=== PATIENT | female | born 1995 | race Caucasian/White ===

== ENCOUNTER 2016-10-22 10:55 | Emergency (ER) | payer MEDICAID ==
[~2016-10-22] VITALS: Ht 160 cm; Wt 55.5 kg
[~2016-10-22 10:55] MED LIST: CEPH500C3 PO; CLIN150 PO; SULF1TAB47 PO; VIST25CA PO; Z.0.BCPILL PO
[2016-10-22 11:05] VITALS: BP 135/70; PULSE 96; RESP 16; TEMP 98.1; O2SAT 100
[2016-10-22] MEDS ORDERED: PREN29TA PO (11:24)
[2016-10-22] MEDS ORDERED: SODIUM CHLOR 0.9% 1000 ML INJ 1,000 ML IV ONE (11:24)
--- NOTE | 2016-10-22 11:47 | PD ---
HPI Chief Complaint: Related Problem Time Seen by Provider: 11:14 Travel History International Travel<30 days: No Contact w/Intl Traveler<30days: No Traveled to known affect area: No History of Present Illness HPI 21 y/o female states her last menstrual cycle was June 30 and has follow-up with [facility] tomorrow as her insurance just started to take effect at the beginning of the month. She states that she had a negative test in July but then a positive test in August. She states that she hasn't had any ultrasound imaging. She states that she thinks her blood type is A+ but she's not sure. She states that she started having vaginal spotting today so she wanted to get checked out. She denies any other symptoms. Quality is pink now changing to brown. She denies specific modifying factors. PFSH Past Medical History Medical History: Denies Significant Hx Diminished Hearing: No Immunizations Current: Yes Tetanus Vaccination: > 5 Years Influenza Vaccination: No ?: LMP: 06/30/16 Past Surgical History Surgical History: No Previous Surgery Social History Alcohol Use: No Tobacco Use: No Substance Use: No Allergies-Medications (Allergen,Severity, Reaction): Coded Allergies: sulfamethoxazole (Unverified Allergy, Mild, itching, 10/22/16) trimethoprim (Unverified Allergy, Mild, itching, 10/22/16) Reported Meds & Prescriptions Reported Meds & Active Scripts Active Reported Plus Iron 29-1 mg ( Vit-Iron Carbonyl) 29 Mg Iron-1 Mg Tab 1 Tab PO DAILY Review of Systems Except as stated in HPI: all other systems reviewed are Neg Physical Exam Narrative GENERAL: Well-nourished, well-developed patient. SKIN: Warm and dry. HEAD: Normocephalic and atraumatic. EYES: No injection or drainage. ENT: No nasal drainage noted. NECK: Supple, trachea midline. CARDIOVASCULAR: Regular rate and rhythm RESPIRATORY: No increased effort. No accessory muscle use. GASTROINTESTINAL: Abdomen soft, non-tender, nondistended. EXTREMITIES: No edema. NEUROLOGICAL: Awake and alert. Motor and sensory grossly within normal limits. Normal speech. Data Data Last Documented VS Vital Signs Date Time Temp Pulse Resp B/P (MAP) Pulse Ox O2 Delivery O2 Flow Rate FiO2 10/22/16 11:05 98.1 96 16 135/70 (91) 100 Orders Orders Beta Hcg (Quant/Titer) (10/22/16 11:24) Complete Blood Count With Diff (10/22/16 11:24) Complete Rh (10/22/16 11:24) Urinalysis - C+S If Indicated (10/22/16 11:24) Iv Access Insert/Monitor (10/22/16 11:24) Sodium Chlor 0.9% 1000 Ml Inj (Ns 1000 M (10/22/16 11:24) Ed Urine Pregnancytest Poc (10/22/16 11:24) Us Pelvis (Ques Preg/Ectopic) (10/22/16 ) Labs Laboratory Tests Test 10/22/16 11:38 10/22/16 12:43 White Blood Count 9.7 TH/MM3 Red Blood Count 4.40 MIL/MM3 Hemoglobin 13.9 GM/DL Hematocrit 40.4 % Mean Corpuscular Volume 91.7 FL Mean Corpuscular Hemoglobin 31.5 PG Mean Corpuscular Hemoglobin Concent 34.3 % Red Cell Distribution Width 12.6 % Platelet Count 210 TH/MM3 Mean Platelet Volume 9.2 FL Neutrophils (%) (Auto) 72.4 % Lymphocytes (%) (Auto) 20.0 % Monocytes (%) (Auto) 6.0 % Eosinophils (%) (Auto) 0.8 % Basophils (%) (Auto) 0.8 % Neutrophils # (Auto) 7.0 TH/MM3 Lymphocytes # (Auto) 1.9 TH/MM3 Monocytes # (Auto) 0.6 TH/MM3 Eosinophils # (Auto) 0.1 TH/MM3 Basophils # (Auto) 0.1 TH/MM3 CBC Comment DIFF FINAL Differential Comment Human Chorionic Gonadotropin, Quant 30603 MIU/ML Urine Collection Type CLEAN CATCH Urine Color YELLOW Urine Turbidity CLOUDY Urine pH 6.0 Urine Specific Spencer 1.016 Urine Protein NEG mg/dL Urine Glucose (UA) NEG mg/dL Urine Ketones NEG mg/dL Urine Occult Blood MOD Urine Nitrite NEG Urine Bilirubin NEG Urine Leukocyte Esterase SMALL Urine RBC 0-3 /hpf Urine Squamous Epithelial Cells 0-5 /hpf Urine Amorphous Sediment LARGE Microscopic Urinalysis Comment CULT NOT INDICATED MDM Medical Decision Making Medical Screen Exam Complete: Yes Emergency Medical Condition: Yes Medical Record Reviewed: Yes (past history confirmed) Interpretation(s) CBC & BMP Diagram 10/22/16 11:38 Last 24 hours Impressions Pelvis Ultrasound 10/22/16 0000 Signed Impressions: Service Date/Time: Saturday, October 22, 2016 12:52 - CONCLUSION: 1. Intrauterine corresponding to 12 weeks 1 day with heart rate 167 bpm. 2. No pelvic free fluid. Chau Atwood MD blood type positive Differential Diagnosis Ectopic, miscarriage, cyst, stone, round ligament pain Narrative Course Check point of care test, labs, comprehensive ultrasound and monitor ER workup shows 12 week IUP, hemoglobin is stable, blood type positive, UA without signs of infection, patient updated,Patient denies any new complaints and states that they are feeling better. Patient happy with care, all questions answered. Patient knows that follow up is incumbent on them and to return to the emergency room immediately if new or worsening symptoms develop. Patient given strict return precautions, vitals reviewed and are normal, agrees to further workup as an outpatient. Diagnosis Primary Impression: Vaginal bleeding Additional Impression: Qualified Codes: Z3A.12 - 12 weeks gestation of Patient Instructions: General Instructions Additional Instructions: return as needed, pelvic rest, follow with ob tommorrow as scheduled Med/Other Pt SpecificInfo: No Change to Meds Disposition: 01 DISCHARGE HOME Condition: Stable Divine Matute MD Oct 22, 2016 11:47
[2016-10-22 11:49] LABS: BASOPHIL # 0.1 TH/MM3 (0-0.2); BASOPHIL % 0.8 % (0.0-2.0); EOSINOPHIL # 0.1 TH/MM3 (0-0.4); EOSINOPHIL % 0.8 % (0.0-4.0); HEMATOCRIT 40.4 % (35.0-46.0); HEMO FLAGS DIFF FINAL; LYMPHOCYTE # 1.9 TH/MM3 (1.0-4.8); MEAN CELL VOLUME 91.7 FL (80.0-100.0); MEAN CORPUSCULAR HEMOGLOBIN 31.5 PG (27.0-34.0); MEAN CORPUSCULAR HGB CONC 34.3 % (32.0-36.0); NEUT % 72.4 % (16.0-70.0); PLATELET COUNT 210 TH/MM3 (150-450); RED CELL DISTRIBUTION WIDTH 12.6 % (11.6-17.2); WHITE BLOOD COUNT 9.7 TH/MM3 (4.0-11.0)
[2016-10-22 12:00] VITALS: BP 117/64; PULSE 78; RESP 16; O2SAT 99
[2016-10-22 12:22] LABS: BETA HCG QUANT 57470 MIU/ML (0-5)
[2016-10-22 13:02] LABS: BLOOD, URINE MOD (NEG); GLUCOSE,URINE NEG (NEG); KETONE, URINE NEG (NEG); NITRITE,URINE NEG (NEG)
[2016-10-22 13:03] LABS: METHOD OF COLLECTION CLEAN CATCH; URINE COLOR YELLOW (YELLW/STRAW)
[2016-10-22 13:06] LABS: COMMENT (UR) CULT NOT INDICATED; CULTURE IF INDICATED CULT NOT INDICATED; RBC, URINE 0-3 /hpf (0-3); SQUAMOUS EPITHELIAL CELL URINE 0-5 /hpf (0-5)
[2016-10-22 13:30] VITALS: BP 122/69; PULSE 82; RESP 16; O2SAT 99
--- NOTE | 2016-10-22 13:35 | RADRPT ---
EXAM DATE/TIME: 10/22/2016 12:52 [facility] COMPARISON: No previous studies available for comparison. INDICATIONS : Spotting with . LAB(S): Beta-hC,[id number] MEDICAL HISTORY : . SURGICAL HISTORY : None. ENCOUNTER: Initial ACUITY: 1 day PAIN SCORE: 0/10 LOCATION: Bilateral pelvis MEASUREMENTS: UTERUS: 13.0 x 6.1 x 8.6 cm ENDOMETRIAL STRIPE: >20 mm RIGHT OVARY: 2.9 x 2.1 x 2.2 cm LEFT OVARY: 2.9 x 2.2 x 2.2 cm FREE FLUID: No CROWN RUMP LENGTH: 5.56 cm = 12 WKS 1 DAYS FHR: 167 BPM FINDINGS: UTERUS: There is an intrauterine gestational sac with pole corresponding to 12 weeks one day. Feta l cardiac activity is demonstrated with heart rate of 167 bpm. Uterus therwise appears adeola ssly unremarkable. RIGHT OVARY: Ovary contains no mass or significant cystic lesion. LEFT OVARY: Ovary contains no mass or significant cystic lesion. MISCELLANEOUS: No free fluid. CONCLUSION: 1. Intrauterine corresponding to 12 weeks 1 day with heart rate 167 bpm. 2. No pelvic free fluid. Chau Atwood MD on October 22, 2016 at 13:31 Board Certified Radiologist. This report was verified electronically.
[2016-10-22 14:25] VITALS: BP 109/70
== END 2016-10-22 14:00 | disposition home or self-care (01) ==
LOC: PHED 10:55
DX: O20.9 Hemorrhage in early pregnancy, unspecified (principal); Z3A.12 12 weeks gestation of pregnancy
CPT/HCPCS: 76700; 81001; 84702; 84703; 85025; 86901; 96360; 99285; J7030